=== PATIENT | male | born 1975 | race Caucasian/White ===

== ENCOUNTER 2022-05-23 18:55 | Inpatient (IN) | payer OTHER, SELFPAY ==
[2022-05-23 18:53] VITALS: BMI 25.1
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
[2022-05-23 19:00] VITALS: BP 120/72; PULSE 64; RESP 18; TEMP 36.9; O2SAT 97
[2022-05-23] MEDS: 0.9% Normal Saline 1,000 ML 150 ML IV (19:45)
[2022-05-23] MEDS: Morphine 2 MG/ML Syringe IV (19:51)
[2022-05-24] VITALS (11 sets, daily range): BP systolic 91–122; BP diastolic 41–76; PULSE 51–70; RESP 12–18; TEMP 36.2–36.9; O2SAT 96–100; BMI 25.0
[2022-05-24] MEDS: Morphine 2 MG/ML Syringe IV ×3 (02:32→23:50)
[2022-05-24] MEDS: 0.9% Normal Saline 1,000 ML 150 ML IV ×3 (02:37→18:06)
[2022-05-24 05:07] LABS: Absolute Lymphocyte Count 2.08 X10^3/uL (0.83-4.51); Absolute Neutrophil Count 5.9 X10^3/uL (2.0-7.7); Basophil# 0.03 X10^3/uL; Basophil% 0.3 % (0-1); Eosinophil# 0.18 X10^3/uL; Hematocrit 41.3 % (40-54); Hemoglobin 13.7 g/dL (13.0-16.5); Lymphocyte # 2.08 X10^3/ul (0.83-4.51); Lymphocyte % 23.3 % (19-41); Mean Corp Hgb Conc 33.2 g/dL (32-36); Mean Corpuscular Hgb 28.8 pg (27.0-32.0); Mean Corpuscular Volume 86.9 fL (80-94); Mean Platelet Vol. 9.4 fl (6.2-12.0); Monocyte# 0.68 X10^3/uL; Monocyte% 7.6 % (0-10); NRBC Flagged by Analyzer 0 % (0-5); Neutrophil # 5.94 X10^3/uL (2.7-7.7); Neutrophil % 66.6 % (47-70); Platelet Count 189 K/mm3 (150-450); RBC Distribution Width CV 13.4 % (11.6-14.6); RBC Distribution Width SD 42.7 fl (35.1-43.9); Red Blood Count 4.75 M/mm3 (4.6-6.2); White Blood Count 8.9 K/mm3 (4.4-11.0)
[2022-05-24 05:31] LABS: ALB/GLOB Ratio 0.9 RATIO (0.9-2.4); AST(SGOT) 84 U/L (15-37); Alanine Aminotransfer ALT/SGPT 308 U/L (16-61); Albumin, Serum 3.1 g/dL (3.2-5.0); Alkaline Phosphatase 322 U/L (45-117); Anion Gap 6 (5-15); BUN 11 mg/dL (7-18); BUN/Creat Ratio 12.7 RATIO (10-20); Calcium,Total 8.4 mg/dL (8.5-10.1); Chloride 105 mmol/L (98-107); Creatinine, Serum 0.86 mg/dL (0.70-1.30); EST Glomerular Filtration Rate 102 mL/min (>60); Est Glom Filt Rate - Afr Amer 123 mL/min (>60); Estimated Creatinine Clearance 98.91 ml/min; Globulin 3.5 g/dL (2.2-4.2); Glucose 71 mg/dL (74-106); Potassium 3.7 mmol/L (3.5-5.1); Protein, Total 6.6 g/dL (6.4-8.2); Sodium Level 136 mmol/L (136-145)
--- NOTE | 2022-05-24 06:00 | EKG12_ITS ---
Test Reason : AM EKG Blood Pressure : / mmHG Vent. Rate : 064 BPM Atrial Rate : 064 BPM P-R Int : 126 ms QRS Dur : 086 ms QT Int : 402 ms P-R-T Axes : 034 -10 020 degrees QTc Int : 414 ms Normal sinus rhythm Nonspecific T wave abnormality Abnormal ECG Confirmed by ADRIAN ORR, YUNIEL ([id number]), medical editor VIVIANA TEIXEIRA ([id number]) on 05/24/2022 10:22:38 AM Referred By: MEGHA Confirmed By:YUNIEL CAMPBELL MD
--- NOTE | 2022-05-24 07:37 | PN.HOSP_ITS ---
Subjective Subjective Follow-up on acute gallstone pancreatitis/probable acute cholecystitis: Patient was seen and examined. He is going for ERCP this morning. Still has some mild epigastric discomfort. Denied any nausea vomiting or diarrhea. Objective Data Objective Data Vital Signs: Vital Signs Temp Pulse Resp BP Pulse Ox O2 Del Method 98.4 F 70 14 122/70 H 97 Room Air 05/24/22 02:36 05/24/22 02:36 05/24/22 02:36 05/24/22 02:36 05/24/22 02:36 05/24/22 02:36 Oxygen Delivery Method Room Air Weight: 70.715 kg Body Mass Index (BMI) 25.1 Intake & Output: Intake and Output for Last 24 Hours 05/22/22 05/23/22 05/24/22 23:59 23:59 23:59 Intake Total 1400 / 1400 Balance 1400 / 1400 Lab / Micro Data Result Diagrams: 05/24/22 04:36 05/24/22 04:36 Labs: Laboratory Results - last 24 hr 05/24/22 04:36: WBC 8.9, RBC 4.75, Hgb 13.7, Hct 41.3, MCV 86.9, MCH 28.8, MCHC 33.2, RDW Std Deviation 42.7, RDW Coeff of Arun 13.4, Plt Count 189, MPV 9.4, Immature Gran % (Auto) 0.200, Neut % (Auto) 66.6, Lymph % (Auto) 23.3, [place] % (Auto) 7.6, Eos % (Auto) 2.0, Baso % (Auto) 0.3, Absolute Neuts (auto) 5.9, Absolute Lymphs (auto) 2.08, Nucleated RBC % 0 05/24/22 04:36: Sodium 136, Potassium 3.7, Chloride 105, Carbon Dioxide 25.0, Anion Gap 6, BUN 11, Creatinine 0.86, Estim Creat Clear Calc 98.91, Est GFR (MDRD) Af Amer 123, Est GFR (MDRD) Non-Af 102, BUN/Creatinine Ratio 12.7, Glucose 71 L, Calcium 8.4 L, Total Bilirubin 2.60 H, AST 84 H, ALT 308 H, Alkaline Phosphatase 322 H, Total Protein 6.6, Albumin 3.1 L, Globulin 3.5, Albumin/Globulin Ratio 0.9 Physical Exam Narrative Physical exam: General: Alert, Oriented x3, Cooperative, No apparent distress HEENT: Atraumatic Oral: Moist Mucosa Neck: Supple Lungs: Clear to auscultation Cardiovascular: HS I+II, regular, no murmurs Abdomen: Bowel Sounds Present, Soft, Non Tender Extremities: No edema, right below elbow amputation of the upper extremity Skin: No rashes, No breakdown Neurological: Grossly intact Psych/Mental Status: Appropriate Assessment & Plan Assessment/Plan (1) Gallstone pancreatitis: PLAN: Plan 1. Acute gallstone pancreatitis/probable acute cholecystitis GI consulted;patient is going for ERCP Follow-up on recommendations, trend labs Continue on IV Zosyn 2. DVT prophylaxis?Lovenox subcu Charges/Coding Visit Charges Inpatient E&M: 75818 Subs Hosp L2
[2022-05-24] MEDS: Lactated Ringers 1,000 ML 15 ML IV ×2 (09:00→13:05)
--- NOTE | 2022-05-24 09:14 | RAD_ITS ---
STUDY: ERCP REASON FOR EXAM: Male, 46 years old. ERCP FLUOROSCOPY TIME (if supplied): ( 3 minutes and 24 seconds ) minutes/seconds. 13 images were submitted. TECHNIQUE: An ERCP was performed by the kindergarten aide. Imaging was submitted. COMPARISON: None. FINDINGS: Filling defects are seen in the common bile duct. A biliary stent was placed. RAD/ERCP Biliary Only IMPRESSION: Filling defects in the common bile duct. Status post stent placement. Electronically Signed: Darren Selby MD at 11:07 EDT ,
--- NOTE | 2022-05-24 12:55 | OP.CCLET_ITS ---
05/24/2022 Sissy Ambrose Re : ERCP procedure for Jhonny Ambrose This procedure was performed on Tuesday, May 24, 2022. My impressions and recommendations are as follows: Impressions : - Choledocholithiasis was found. Complete removal was accomplished by biliary sphincterotomy and balloon extraction. - A biliary sphincterotomy was performed. - The biliary tree was swept. - Common bile duct was successfully dilated. - One temporary stent was placed into the common bile duct. - One temporary stent was placed into the ventral pancreatic duct. Recommendations : Clear liquids, continue IV fluids and antibiotic therapy My findings are described in the full procedure note, which is enclosed. If I can be of further assistance, please feel free to contact me at . Sincerely, Bismark Valente, 05/24/2022 12:55:06 PM This report has been signed electronically.
--- NOTE | 2022-05-24 12:55 | OP.ERCP_ITS ---
Patient Name: Jhonny Fontanez Procedure Date: 05/24/2022 11:32 AM Date of : 1975 Age: 46 Procedure: ERCP Indications: Bile duct stone(s), Jaundice, Acute pancreatitis Providers: Bismark Valente DO Medicines: Monitored Anesthesia Care Patient Profile: This is a 46 year old male. Refer to note in patient chart for documentation of history and physical. Patient has symptoms of acute abdominal cramping, acute epigastric abdominal pain and acute jaundice. This patient has no history of previous ERCP. Complications: No immediate complications. Procedure: Pre-Anesthesia Assessment: - Prior to the procedure, a History and Physical was performed, and patient medications and allergies were reviewed. The patient is competent. The risks and benefits of the procedure and the sedation options and risks were discussed with the patient. All questions were answered and informed consent was obtained. Patient identification and proposed procedure were verified by the physician in the pre-procedure area. Mental Status Examination: alert and oriented. Airway Examination: normal oropharyngeal airway and neck mobility. Respiratory Examination: clear to auscultation. CV Examination: normal. Prophylactic Antibiotics: The patient does not require prophylactic antibiotics. Prior Anticoagulants: The patient has taken no previous anticoagulant or antiplatelet agents. ASA Grade Assessment: II - A patient with mild systemic disease. After reviewing the risks and benefits, the patient was deemed in satisfactory condition to undergo the procedure. The anesthesia plan was to use general anesthesia. Immediately prior to administration of medications, the patient was re-assessed for adequacy to receive sedatives. The heart rate, respiratory rate, oxygen saturations, blood pressure, adequacy of pulmonary ventilation, and response to care were monitored throughout the procedure. The physical status of the patient was re-assessed after the procedure. After obtaining informed consent, the scope was passed under direct vision. Throughout the procedure, the patient's blood pressure, pulse, and oxygen saturations were monitored continuously. The Duodenoscope was introduced through the mouth, and advanced to the duodenum and used to inject contrast into the bile duct and ventral pancreatic duct. The ERCP was accomplished without difficulty. Scope In: 11:44:37 AM Scope Out: 12:41:02 PM Total Procedure Duration Time 0 hours 56 minutes 25 seconds Findings: The software publisher film was normal. The esophagus was successfully intubated under direct vision. The scope was advanced to a normal major papilla in the descending duodenum without detailed examination of the pharynx, larynx and associated structures, and upper GI tract. The upper GI tract was grossly normal. The bile duct was deeply cannulated with the short-nosed traction sphincterotome. Contrast was injected. I personally interpreted the bile duct and pancreatic duct images. There was brisk flow of contrast through the ducts. Image quality was excellent. Contrast extended to the biliary pancreatic junction. Contrast extended to the pancreatic duct. Opacification of the main bile duct was successful. The maximum diameter of the ducts was 7 mm. The lower third of the main bile duct contained two stones, the largest of which was 3 mm in diameter. A straight Roadrunner wire was passed into the biliary tree. A 5 mm biliary sphincterotomy was made with a traction (standard) sphincterotome using ERBE electrocautery. The sphincterotomy oozed blood. The biliary tree was swept with a 12 mm balloon starting at the bifurcation. Sludge was swept from the duct. All stones were removed. A 0.035 inch x 260 cm angled Hydra Jagwire passed successfully into the tail of the pancreatic duct from the major papilla. Dilation of the common bile duct with a 6-7-8 mm balloon (to a maximum balloon size of 6 mm) dilator was successful. One 10 Fr by 7 cm temporary stent with two external flaps and two internal flaps was placed 5 cm into the common bile duct. Bile flowed through the stent. The stent was in good position. One 5 Fr by 7 cm temporary stent was placed 5 cm into the ventral pancreatic duct. Clear fluid flowed through the stent. The stent was in good position. Impression: - Choledocholithiasis was found. Complete removal was accomplished by biliary sphincterotomy and balloon extraction. - A biliary sphincterotomy was performed. - The biliary tree was swept. - Common bile duct was successfully dilated. - One temporary stent was placed into the common bile duct. - One temporary stent was placed into the ventral pancreatic duct. Recommendation: Clear liquids, continue IV fluids and antibiotic therapy Procedure Code(s): --- Professional --- 97456, Endoscopic retrograde cholangiopancreatography (ERCP); with placement of endoscopic stent into biliary or pancreatic duct, including pre- and post-dilation and guide wire passage, when performed, including sphincterotomy, when performed, each stent [id number], 59, Endoscopic retrograde cholangiopancreatography (ERCP); with placement of endoscopic stent into biliary or pancreatic duct, including pre- and post-dilation and guide wire passage, when performed, including sphincterotomy, when performed, each stent [id number], Endoscopic retrograde cholangiopancreatography (ERCP); with removal of calculi/debris from biliary/pancreatic duct(s) 21083, 26, Combined endoscopic catheterization of the biliary and pancreatic ductal systems, radiological supervision and interpretation CPT copyright 2017 [employer]. All rights reserved. The codes documented in this report are preliminary and upon crimping machine operator review may be revised to meet current compliance requirements. Bismark Valente DO 05/24/2022 12:55:06 PM This report has been signed electronically. Number of Addenda: 0 Note Initiated On: 05/24/2022 11:32 AM
[2022-05-24] MEDS: Enoxaparin 40 MG/0.4 ML Syringe SC (14:45)
[2022-05-24] MEDS: 0.9% Saline Lock 10 ML Syringe IV ×2 (17:00→23:51)
[2022-05-25] MEDS: 0.9% Normal Saline 1,000 ML 150 ML IV ×2 (01:25→08:34)
[2022-05-25 01:28] VITALS: BP 115/62; PULSE 52; RESP 16; TEMP 36.4; O2SAT 98
[2022-05-25 03:00] VITALS: BP 115/62; PULSE 52; RESP 16; TEMP 36.4; O2SAT 98
[2022-05-25 06:02] LABS: Absolute Lymphocyte Count 1.89 X10^3/uL (0.83-4.51); Absolute Neutrophil Count 5.5 X10^3/uL (2.0-7.7); Basophil# 0.03 X10^3/uL; Basophil% 0.4 % (0-1); Eosinophil# 0.18 X10^3/uL; Eosinophils% 2.2 % (0-5); Hematocrit 33.6 % (40-54); Hemoglobin 11.1 g/dL (13.0-16.5); Lymphocyte # 1.89 X10^3/ul (0.83-4.51); Mean Corpuscular Hgb 28.9 pg (27.0-32.0); Mean Corpuscular Volume 87.5 fL (80-94); Mean Platelet Vol. 9.7 fl (6.2-12.0); Monocyte# 0.63 X10^3/uL; Monocyte% 7.7 % (0-10); NRBC Flagged by Analyzer 0 % (0-5); Neutrophil # 5.47 X10^3/uL (2.7-7.7); Neutrophil % 66.5 % (47-70); Platelet Count 187 K/mm3 (150-450); RBC Distribution Width CV 13.1 % (11.6-14.6); RBC Distribution Width SD 41.2 fl (35.1-43.9); Red Blood Count 3.84 M/mm3 (4.6-6.2); White Blood Count 8.2 K/mm3 (4.4-11.0)
[2022-05-25 06:33] LABS: ALB/GLOB Ratio 0.9 RATIO (0.9-2.4); AST(SGOT) 33 U/L (15-37); Alanine Aminotransfer ALT/SGPT 189 U/L (16-61); Albumin, Serum 2.6 g/dL (3.2-5.0); Alkaline Phosphatase 222 U/L (45-117); Anion Gap 6 (5-15); BUN 10 mg/dL (7-18); BUN/Creat Ratio 13.4 RATIO (10-20); Calcium,Total 8.5 mg/dL (8.5-10.1); Chloride 107 mmol/L (98-107); Creatinine, Serum 0.75 mg/dL (0.70-1.30); EST Glomerular Filtration Rate 120 mL/min (>60); Est Glom Filt Rate - Afr Amer 145 mL/min (>60); Estimated Creatinine Clearance 113.42 ml/min; Glucose 106 mg/dL (74-106); Potassium 3.5 mmol/L (3.5-5.1); Protein, Total 5.6 g/dL (6.4-8.2); Sodium Level 138 mmol/L (136-145)
[2022-05-25 07:41] VITALS: BP 122/65; PULSE 63; RESP 18; TEMP 36.6; O2SAT 99
[2022-05-25] MEDS: Enoxaparin 40 MG/0.4 ML Syringe SC (07:45)
[2022-05-25] MEDS: Morphine 2 MG/ML Syringe IV (08:41)
--- NOTE | 2022-05-25 08:57 | DCINST_ITS ---
Discharge Instructions Diet Discharge Diet: No restrictions Activity Discharge Activity: Return to Normal Activity Weight Bearing Status: Weight bearing as tolerated Follow Up Care Test Results: Test results from this visit will be discussed in further detail at your follow- up appointment, if applicable. Discharge Plan Admission Admit Date/Time: 05/23/22 18:55 Primary Reason for Your Visit: Acute gallstone pancreatitis Attending Provider: Aster Cortez Primary Care Provider: Sissy Ambrose Consulting Providers: Clive Garcia Instructions Forms: Work / School Excuse Additional Instructions / Restrictions: Continue to keep yourself hydrated Follow-up with your primary care doctor within 1 week Follow-up with Dr. Valente within 2 weeks Discharge Orders/Prescriptions Referrals / Follow Up: Sissy Ambrose MD [Primary Care Provider] - In 1 Week Bismark Valente DO [Med Staff - Active Staff] - Within 2 Weeks Disposition Disposition (needs filled in before D/C Order can be placed): Home, Self Care
[2022-05-25 09:00] VITALS: BP 122/65; PULSE 63; RESP 18; TEMP 36.6; O2SAT 99
--- NOTE | 2022-05-25 10:20 | CASEMGMT ---
RN UDAY Face to Face with patient for initial transition planning/care coordination assessment. RN CM introduced self and role at [facility]. Patient lying in bed, alert and oriented, at bedside. Patient willing to participate in assessment and is able to answer all questions appropriately. Care providers, pharmacy, and demographics verified. Patient wishes to discharge home, denies need for home health at this time. Patient states he has no further needs or concerns at this time. CM to follow for discharge planning needs that may arise. PCP: Olya Specialists: none Preferred Pharmacy: [facility] Insurance: [facility] Prescription Benefit: yes Living Will/HPOA: none LNOK: Living Arrangements: patient lives with in a single story home with . Patient is independent at home Transportation: self, DME/HHC: Patient states she has a cane. Patient denies previous HHC or SNF Disposition Plan: Patient to discharge home with family support and follow-up plans in place. Jennifer DE LOS SANTOS, RN, CM
--- NOTE | 2022-05-25 10:27 | PCM.DC.SUM ---
Providers Date of Admission: 05/23/22 Date of Discharge: 05/25/22 Primary Care Physician: Dr. Sissy Ambrose MD Consultations 05/23/22 19:12 Consult: Gastroenterology Routine Consulting Provider: [facility] Reason for Consult: Gallstone pancreatitis EMERGENT Consult: No MD Notified: Yes Date Notified: 05/23/22 Time Notified: 18:58 Method of Notification: Verbal Reason For Visit: PANCREATITIS Diagnosis Discharge Diagnosis (1) Gallstone pancreatitis: Status: Acute Code(s): K85.10 - Biliary acute pancreatitis without necrosis or infection Plan 1. Acute gallstone pancreatitis/probable acute cholecystitis Medications at Discharge Home Medications amoxicillin 500 mg-potassium clavulanate 125 mg tablet (Augmentin) 1 tab PO BID 5 days #10 tabs 05/25/22 pantoprazole 40 mg tablet,delayed release 40 mg PO BID 30 days #60 tabs 05/25/22 Hospital Course Operations ERCP (05/25/22) Procedures None Summary of Care Provided Minutes Spent on Discharge: 35 Hospital Course: 46-year-old male with history of amputation of the right forearm who comes in as a direct admission from [facility] with severe epigastric pain. Patient stated that he has been noticing intermittent abdominal pain with eating. This however got worse 4 days prior to admission. In the outside hospital ultrasound of the gallbladder showed cholelithiasis, sludge with a distended gallbladder with wall thickening, mild biliary duct dilatation with the common duct measuring 6.[address] of the abdomen pelvis showed dilated common bile duct with dilated intrahepatic bile duct, distended gallbladder with mild stranding along the margins of the gallbladder, early cholecystitis was possible, no conclusive features of pancreatitis, no dilated pancreatic duct, no conclusive features of stone or mass in the common bile duct, AST was 288, ALP 397, ALT 536, total bilirubin is 6.5. Patient was admitted to the [facility] floor, kept n.p.o., started on IV fluids and IV antibiotics. GI was consulted. He underwent ERCP on 05/24/22. Findings post ERCP showed choledocholithiasis, complete removal was accomplished by biliary sphincterectomy and balloon extraction. The biliary history was swept. Common bile duct was successfully dilated. 1 temporary stent was placed into the common bile duct. 1 temporary stent was placed into the ventral pancreatic duct. Patient was able to tolerate an upgrade in his diet. He was discharged on 5 more days of Augmentin. He will follow-up with his primary care doctor within 1 week and also follow-up with GI within 2 weeks. Physical Exam Narrative Physical exam: General: Alert, Oriented x3, Cooperative, No apparent distress HEENT: Atraumatic Oral: Moist Mucosa Neck: Supple Lungs: Clear to auscultation Cardiovascular: HS I+II, regular, no murmurs Abdomen: Bowel Sounds Present, Soft, Non Tender Extremities: No edema Skin: No rashes, No breakdown Neurological: Grossly intact Psych/Mental Status: Appropriate Weight / BMI Weight Weight: 70.715 kg Body Mass Index (BMI) 25.0 ABG / Lab / Microbiology Data Result Diagrams: 05/25/22 05:36 05/25/22 05:36 Laboratory: Laboratory Results - last 24 hr 05/25/22 05:36: WBC 8.2, RBC 3.84 L, Hgb 11.1 L, Hct 33.6 L, MCV 87.5, MCH 28.9, MCHC 33.0, RDW Std Deviation 41.2, RDW Coeff of Arun 13.1, Plt Count 187, MPV 9.7, Immature Gran % (Auto) 0.200, Neut % (Auto) 66.5, Lymph % (Auto) 23.0, [place] % (Auto) 7.7, Eos % (Auto) 2.2, Baso % (Auto) 0.4, Absolute Neuts (auto) 5.5, Absolute Lymphs (auto) 1.89, Nucleated RBC % 0 05/25/22 05:36: Sodium 138, Potassium 3.5, Chloride 107, Carbon Dioxide 25.0, Anion Gap 6, BUN 10, Creatinine 0.75, Estim Creat Clear Calc 113.42, Est GFR (MDRD) Af Amer 145, Est GFR (MDRD) Non-Af 120, BUN/Creatinine Ratio 13.4, Glucose 106, Calcium 8.5, Total Bilirubin 1.40 H, AST 33, ALT 189 H, Alkaline Phosphatase 222 H, Total Protein 5.6 L, Albumin 2.6 L, Globulin 3.0, Albumin/Globulin Ratio 0.9 D/C Instructions Discharge Diet: No restrictions Weight Bearing Status: Weight bearing as tolerated Meaningful Use Info Meaningful Use Diagnoses (Choose all that apply): None applicable Discharge Plan Admission Admit Date/Time: 05/23/22 18:55 Primary Reason for Your Visit: Acute gallstone pancreatitis Attending Provider: Aster Cortez Primary Care Provider: Sissy Ambrose Consulting Providers: Clive Garcia Instructions Forms: Work / School Excuse Additional Instructions / Restrictions: Continue to keep yourself hydrated Follow-up with your primary care doctor within 1 week Follow-up with Dr. Valente within 2 weeks Discharge Orders/Prescriptions Prescriptions: New amoxicillin-pot clavulanate [Augmentin] 500-125 mg tablet 1 tab PO BID 5 Days Qty: 10 0RF pantoprazole 40 mg tablet,delayed release (DR/EC) 40 mg PO BID 30 Days Qty: 60 0RF Referrals / Follow Up: Sissy Ambrose MD [Primary Care Provider] - In 1 Week Bismark Valente DO [Med Staff - Active Staff] - Within 2 Weeks Disposition Disposition (needs filled in before D/C Order can be placed): Home, Self Care Charges/Coding Visit Charges Inpatient E&M: 25583 Disch Hosp
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
== END 2022-05-25 11:24 | disposition home or self-care (01) | DRG 439 ==
PROVIDERS: Internal Medicine Gastroenterology; Admitting Provider Family Medicine; PCP Family Medicine; Visit Provider Internal Medicine
PROC: 0FC98ZZ Extirpation of Matter from Common Bile Duct, Via Natural or Artificial Opening Endoscopic (ICD-10-PCS; CPT 43260; principal; 2022-05-24 10:40)
DX: K85.10 Biliary acute pancreatitis without necrosis or infection (principal); K80.42 Calculus of bile duct with acute cholecystitis without obstruction; K83.8 Other specified diseases of biliary tract
CPT/HCPCS: 36415; 74328; 76000; 80053; 85025; 93005; J7030; J7040; J7050; J7120; A4216; C1726; J2405

== ENCOUNTER 2022-06-21 09:57 | Observation (INO) | payer OTHER, SELFPAY ==
[2022-06-21] VITALS (15 sets, daily range): BP systolic 121–157; BP diastolic 82–110; PULSE 45–87; RESP 15–20; TEMP 36.1–36.9; O2SAT 96–100; BMI 25.3
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
[2022-06-21] MEDS: Morphine 4 MG/ML Syringe IV ×2 (11:22→13:34)
[2022-06-21] MEDS: Ondansetron 4 MG/2 ML Vial IV (11:22)
[2022-06-21] MEDS: Ketorolac 15 MG/ML Vial IV (11:22)
--- NOTE | 2022-06-21 11:31 | US_ITS ---
HISTORY: Upper quadrant pain with clinical Carrera sign. TECHNIQUE: Mac scale and color doppler imaging was performed of the right upper quadrant. 85 images. COMPARISON: CT 08/31/2015. FINDINGS: LIVER: 15.2 cm in length. Homogeneous echotexture without focal lesion demonstrated. No intrahepatic ductal dilatation. MAIN PORTAL VEIN: Patent with flow in the appropriate direction. COMMON BILE DUCT: 5 mm in diameter with biliary stent in place. GALLBLADDER: Large amount of tumefactive sludge with small gallstones in the distended gallbladder. 4 mm wall thickness, mildly thickened. Mild pericholecystic fluid. Sonographic Carrera sign positive. PANCREAS: Partially obscured due to overlying bowel gas. RIGHT KIDNEY: 10.8 cm in length with a cortical thickness of 1.4 cm. No hydronephrosis or gross renal mass demonstrated. US/Gallbladder IMPRESSION: Cholelithiasis and biliary sludge in the distended gallbladder with mild gallbladder wall thickening and pericholecystic fluid, concerning for acute cholecystitis. No evidence for biliary ductal dilatation with biliary stent in place. Electronically Signed: Casandra Maya MD at 13:44 EST ,
[2022-06-21 11:33] LABS: Absolute Neutrophil Count 8.6 X10^3/uL (2.0-7.7); Basophil# 0.04 X10^3/uL; Basophil% 0.4 % (0-1); Eosinophil# 0.22 X10^3/uL; Hemoglobin 14.7 g/dL (13.0-16.5); Lymphocyte % 11.8 % (19-41); Mean Corp Hgb Conc 33.4 g/dL (32-36); Mean Corpuscular Hgb 28.5 pg (27.0-32.0); Mean Corpuscular Volume 85.4 fL (80-94); Mean Platelet Vol. 10.1 fl (6.2-12.0); Monocyte% 7.3 % (0-10); NRBC Flagged by Analyzer 0 % (0-5); Neutrophil # 8.61 X10^3/uL (2.7-7.7); Neutrophil % 78.1 % (47-70); Platelet Count 227 K/mm3 (150-450); RBC Distribution Width CV 12.6 % (11.6-14.6); RBC Distribution Width SD 39.3 fl (35.1-43.9); Red Blood Count 5.15 M/mm3 (4.6-6.2)
[2022-06-21 12:31] LABS: AST(SGOT) 16 U/L (15-37); Alanine Aminotransfer ALT/SGPT 24 U/L (16-61); Albumin, Serum 3.7 g/dL (3.2-5.0); Alkaline Phosphatase 87 U/L (45-117); Bilirubin, Direct 0.25 mg/dL (0.00-0.30); Globulin 3.7 g/dL (2.2-4.2); Lipase 190 U/L (73-393); Protein, Total 7.4 g/dL (6.4-8.2)
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
--- NOTE | 2022-06-21 14:20 | PCM.OPRPT ---
Problems Associated Problem List Diagnoses (1) Acute cholecystitis due to biliary calculus: Report of Operation Date of Procedure: 06/21/22 Pre-Operative Diagnosis: Acute cholecystitis with cholelithiasis Post-Operative Diagnosis: Same Surgery/Procedure Performed:: Laparoscopic cholecystectomy Surgeon: Ty Haynes Type of Anesthesia: General Anesthesiologist: Laith Melchor Specimen's removed: Gallbladder Drains: None Estimated Blood Loss (mL): 50 cc Description of Procedure: Patient was brought into the operating room. Placed in the supine position. Under excellent general anesthetic. The abdomen was sterilely prepped and draped in usual fashion. Local was injected infraumbilically. Dissection was carried down to the fascia. The fascia was grasped with a [place]. Varies needle was placed inside the abdomen. The abdomen was insufflated 15 torr. A 10/12 trocar was placed. Patient was placed in the head up and rotated to the left position. Subxiphoid #5 trochars placed, inferior to this another #5 trocar was placed, laterally a #5 trocar was placed. All these trochars were placed under direct visualization without injury to underlying structures. I aspirated out fluid from the gallbladder. I grasped it retracted in cephalad direction. Significant swelling all around the gallbladder with adhesions I took this down with electrocautery I dissected all of this edematous plane till I got down to the cystic duct I placed hemoclips proximally and distally on the duct and ligated the duct. I placed hemoclips proximally and distally on the artery and ligated the artery. I deliver the gallbladder from the gallbladder bed with use of electrocautery I did have some spillage of bile and stones. Small little vessels I did place hemoclips on as well. I placed the specimen in a specimen bag delivered through the umbilical port without difficulty. I irrigated the right upper quadrant used electrocautery on the liver bed I had good hemostasis. I used a 10 mm suction aspirator to retrieve all the stones that I had lost. I placed Ebenezer on the liver bed. I removed the trochars under direct visualization good my stasis was noted. Close the fascia the umbilical port with a [id number] stitch of 0 Vicryl. Skin incisions were closed with subcuticular stitches of 4-0 Monocryl. Sterile dressings were applied. Patient tolerated the procedure well. Admit VTE Documentation VTE Present on Admission: No VTE Mechan Device Prophylaxis: SCD's VTE Pharm Prophylaxis ordered?: No Reason prophylaxis not ordered:: Treatment Not Indicated
--- NOTE | 2022-06-21 14:30 | GALL_PTH ---
PATIENT: DINESH REYES LOC: MS3 U#:[id number] AGE/SX: 46/M [place] [facility] [place]: Dr. Ty Haynes MD : 1975 BED: 1 DIS: 06/22/2022 SPEC #: [id number] RECD: 06/24/22 06:33 STATUS: YOSSI REKimberly #: [id number] LOU: 06/21/22 14:[address]: Ty Haynes DEPT: SURGICAL PATHOLOGY RECD BY: Lynne Ornelas ENTERED: 06/24/22 08:09 SP TYPE: BLAINE VERGARA DR: Dr. Seema Dobson MD Tissues: Gallbladder, NOS Procedures: Surgery Specimen Level III HEADER OPERATION: Laparoscopic cholecystectomy PRE-OP DIAGNOSIS: Acute cholecystitis due to biliary calculus TISSUE SUBMITTED: Gallbladder MICROSCOPIC DIAGNOSIS Gallbladder, cholecystectomy: Acute and chronic ulcerated and hemorrhagic cholecystitis, cholelithiasis and focal cholesterolosis. Reactive epithelial changes. AMRIK:gordo 06/25/2022 MICROSCOPIC DESCRIPTION Slides are reviewed. GROSS DESCRIPTION Received is one container labeled with the patient's name and designated gallbladder. The specimen consists of a gallbladder measuring 10 cm in length and up to 4 cm in diameter. The external surface is pink-moya, smooth and glistening for the most part. Focally it is granular, hemorrhagic and contains cautery artifact. The gallbladder contains a small amount of hemorrhagic bile and multiple yellowish-brown mulberry stones measuring in aggregate 2.5 x 2.5 x 0.5 cm and 0.4 to 0.5 cm in greatest dimension. A few stones are noted in the cystic duct. The mucosa is bile-stained and without any mass lesions. The gallbladder wall measures up to 0.6 cm in thickness. Senior Architect sections from the gallbladder and the cystic duct are submitted in two cassettes. / AMRIK:gordo 06/24/2022 TC:2 CPT: 87885
[2022-06-21] MEDS: 0.9% Normal Saline 1,000 ML 15 ML IV (15:00)
[2022-06-21] MEDS: Bupivacaine 0.25% 30 ML Vial (15:23)
[2022-06-21] MEDS: 0.9% Normal Saline 1,000 ML 75 ML IV (18:44)
[2022-06-21] MEDS: oxyCODONE 5 MG Tablet PO (21:08)
[2022-06-22 03:01] VITALS: BP 134/98; PULSE 84; RESP 18; TEMP 37.1; O2SAT 98
[2022-06-22] MEDS: oxyCODONE 5 MG Tablet PO ×2 (03:02→07:37)
--- NOTE | 2022-06-22 03:49 | NURSING ---
st cathed for 1300cc dark yellow urine at this time
[2022-06-22 07:16] LABS: Absolute Lymphocyte Count 1.23 X10^3/uL (0.83-4.51); Absolute Neutrophil Count 10.3 X10^3/uL (2.0-7.7); Basophil# 0.01 X10^3/uL; Basophil% 0.1 % (0-1); Hematocrit 41.1 % (40-54); Hemoglobin 13.9 g/dL (13.0-16.5); Lymphocyte # 1.23 X10^3/ul (0.83-4.51); Lymphocyte % 9.5 % (19-41); Mean Corp Hgb Conc 33.8 g/dL (32-36); Mean Corpuscular Hgb 28.5 pg (27.0-32.0); Mean Corpuscular Volume 84.2 fL (80-94); Mean Platelet Vol. 9.7 fl (6.2-12.0); Monocyte# 1.31 X10^3/uL; Monocyte% 10.1 % (0-10); NRBC Flagged by Analyzer 0 % (0-5); Neutrophil # 10.33 X10^3/uL (2.7-7.7); Platelet Count 229 K/mm3 (150-450); RBC Distribution Width CV 12.6 % (11.6-14.6); RBC Distribution Width SD 38.8 fl (35.1-43.9); Red Blood Count 4.88 M/mm3 (4.6-6.2); White Blood Count 12.9 K/mm3 (4.4-11.0)
[2022-06-22] MEDS: Pantoprazole Sodium 40 MG Tablet PO (07:37)
[2022-06-22 07:40] VITALS: BP 133/89; PULSE 90; RESP 18; TEMP 37; O2SAT 97
[2022-06-22 07:43] VITALS: BP 133/89; PULSE 90; RESP 18; TEMP 37; O2SAT 97
[2022-06-22 08:17] LABS: ALB/GLOB Ratio 0.9 RATIO (0.9-2.4); AST(SGOT) 40 U/L (15-37); Alanine Aminotransfer ALT/SGPT 57 U/L (16-61); Albumin, Serum 3.2 g/dL (3.2-5.0); Alkaline Phosphatase 80 U/L (45-117); Anion Gap 6 (5-15); BUN 15 mg/dL (7-18); BUN/Creat Ratio 18.7 RATIO (10-20); Calcium,Total 8.6 mg/dL (8.5-10.1); Chloride 100 mmol/L (98-107); EST Glomerular Filtration Rate 111 mL/min (>60); Est Glom Filt Rate - Afr Amer 134 mL/min (>60); Estimated Creatinine Clearance 106.33 ml/min; Globulin 3.6 g/dL (2.2-4.2); Glucose 127 mg/dL (74-106); Potassium 3.9 mmol/L (3.5-5.1); Protein, Total 6.8 g/dL (6.4-8.2); Sodium Level 134 mmol/L (136-145)
--- NOTE | 2022-06-22 09:01 | DCINST_ITS ---
Discharge Instructions Procedure Gallbladder Diet Discharge Diet: Light diet - advance as tolerated Activity Discharge Activity: May Not Drive (for 2-3 days or while taking narcotic pain medications.) and - (Do not drive, work heavy equipment or sign legal documents for 24 hours.) May shower in (days): 1 (with the bandage in place.) Additional Activity Instructions:: Pain medication may cause nausea. You should typically eat light foods as you take your pain medications. Pain medication may also cause constipation. If this is a problem for you, please discuss with your doctor. Dressing / Incision Call your doctor if your incision/area has: Continuous Slow Oozing, Sudden Increased Bleeding, Increased Pain/ Swelling, Increased Redness and Foul Sm elling Discharge Call your doctor if you observe: Fever of 101 or Higher Suture Line Care: Avoid Pulling/Pushing and Avoid Pinching/Bending Additional Dressing/Incision Instructions:: Leave operative bandaids on for 2 days. When you remove dressing, leave Steri-Strips on until your follow-up appointment, or until the Steri-Strips fall off on their own. Follow Up Care Please Follow Up With: Crystal López PA-C When: Call office to schedule an appointment to be seen in 7 days after surgery. Test Results: Test results from this visit will be discussed in further detail at your follow- up appointment, if applicable. Discharge Plan Admission Attending Provider: Ty Haynes Primary Care Provider: Seema Dobson Discharge Orders/Prescriptions Prescriptions: New levofloxacin 500 mg tablet 500 mg PO DAILY Qty: 7 0RF oxycodone-acetaminophen [Endocet] 5-325 mg tablet 1 tab PO Q4H PRN (Reason: pain) 5 Days Qty: 20 0RF No Action pantoprazole 40 mg tablet,delayed release (DR/EC) 40 mg PO BID Referrals / Follow Up: Seema Dobson MD [Primary Care Provider] - Crystal López PA-C [Med Staff - [facility] Prof] - Disposition Disposition (needs filled in before D/C Order can be placed): Home, Self Care
== END 2022-06-22 11:47 | disposition home or self-care (01) ==
LOC: ED 14:13 → SDC 14:26 → MS3 14:54 → SDC 06-22 10:56 → MS3 06-22 10:56
PROVIDERS: Admitting Provider Surgery; Emergency Provider Emergency Medicine; PCP Internal Medicine; Visit Provider Surgery
PROC: (CPT 47562; principal; 2022-06-21 14:10)
DX: K80.12 Calculus of gallbladder with acute and chronic cholecystitis without obstruction (principal)
CPT/HCPCS: 47562; 00790; 36415; 76705; 80053; 80076; 83690; 85025; 87070; 87075; 87077; 87186; 87205; 88304; 96361; 96365; 96366; 96375; 96376; 99218; 99251; 99252; 99284; J7030; A4216; G0378; G0463; J2405

== ENCOUNTER 2022-08-27 13:09 | Day surgery (SDC) | payer OTHER, SELFPAY ==
[2022-08-27] VITALS (7 sets, daily range): BP systolic 121–136; BP diastolic 78–101; PULSE 62–71; RESP 16–18; TEMP 36.4–36.6; O2SAT 95–99; BMI 28.1
--- NOTE | 2022-08-27 13:29 | EKG12_ITS ---
Test Reason : PREOP Blood Pressure : / mmHG Vent. Rate : 060 BPM Atrial Rate : 060 BPM P-R Int : 142 ms QRS Dur : 088 ms QT Int : 410 ms P-R-T Axes : 029 -17 024 degrees QTc Int : 410 ms Poor data quality, interpretation may be adversely affected Normal sinus rhythm Normal ECG When compared with ECG of 21-JUN-2022 14:58, Questionable change in QRS axis T wave inversion no longer evident in Anterior leads Confirmed by CASEY ORR, BORIS ([id number]), purchase request editor VIVIANA TEIXEIRA ([id number]) on 09/02/2022 12:58:16 PM Referred By: Bismark Valente Confirmed By:NELLIE PEÑA MD
[2022-08-27] MEDS: Lactated Ringers 1,000 ML 15 ML IV (14:05)
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
--- NOTE | 2022-08-27 17:30 | RAD_ITS ---
Fluoroscopic guided ERCP INDICATION: Pain TECHNIQUE: Fluoroscopic guided ERCP was performed in usual fashion by gunner's mate m. FINDINGS: 9 fluoroscopic guided images were obtained in the anterior projection during the exam to document findings during the study. For more complete information recommend correlation with gunner's mate m procedure notes RAD/ERCP Biliary Only IMPRESSION: Fluoroscopic guided ERCP Electronically Signed: Hernan Navarro MD at 22:12 EST ,
--- NOTE | 2022-08-27 18:52 | EKG12_ITS ---
Test Reason : POST OP Blood Pressure : / mmHG Vent. Rate : 065 BPM Atrial Rate : 065 BPM P-R Int : 138 ms QRS Dur : 086 ms QT Int : 412 ms P-R-T Axes : 026 008 027 degrees QTc Int : 428 ms Normal sinus rhythm Normal ECG When compared with ECG of 27-AUG-2022 13:29, MANUAL COMPARISON REQUIRED, DATA IS UNCONFIRMED Confirmed by CASEY ORR, BORIS ([id number]), metropolitan editor VIVIANA TEIXEIRA ([id number]) on 09/02/2022 12:55:51 PM Referred By: Bismark Valente Confirmed By:NELLIE PEÑA MD
--- NOTE | 2022-08-28 17:12 | OP.ERCP_ITS ---
Patient Name: Jhonny Fontanez Procedure Date: 08/27/2022 5:13 PM Date of : 1975 Age: 47 Procedure: ERCP Indications: Biliary stent removal Providers: Bismark Valente DO Referring MD: Bismark Valente DO Medicines: Monitored Anesthesia Care Patient Profile: This is a 47 year old male. Refer to note in patient chart for documentation of history and physical. Patient has symptoms of chronic jaundice and chronic nausea. Complications: No immediate complications. Procedure: Pre-Anesthesia Assessment: - Prior to the procedure, a History and Physical was performed, and patient medications and allergies were reviewed. The patient is competent. The risks and benefits of the procedure and the sedation options and risks were discussed with the patient. All questions were answered and informed consent was obtained. Patient identification and proposed procedure were verified by the physician in the pre-procedure area. Mental Status Examination: alert and oriented. Airway Examination: normal oropharyngeal airway and neck mobility. Respiratory Examination: clear to auscultation. CV Examination: normal. Prophylactic Antibiotics: The patient does not require prophylactic antibiotics. Prior Anticoagulants: The patient has taken aspirin. ASA Grade Assessment: II - A patient with mild systemic disease. After reviewing the risks and benefits, the patient was deemed in satisfactory condition to undergo the procedure. The anesthesia plan was to use monitored anesthesia care (MAC). Immediately prior to administration of medications, the patient was re-assessed for adequacy to receive sedatives. The heart rate, respiratory rate, oxygen saturations, blood pressure, adequacy of pulmonary ventilation, and response to care were monitored throughout the procedure. The physical status of the patient was re-assessed after the procedure. After obtaining informed consent, the scope was passed under direct vision. Throughout the procedure, the patient's blood pressure, pulse, and oxygen saturations were monitored continuously. The Duodenoscope was introduced through the mouth, and advanced to the duodenum and used to inject contrast into the bile duct. The ERCP was accomplished without difficulty. The patient tolerated the procedure well. Scope In: 5:34:38 PM Scope Out: 5:51:11 PM Total Procedure Duration Time 0 hours 16 minutes 33 seconds Findings: The manager float film was normal. The esophagus was successfully intubated under direct vision. The scope was advanced to a normal major papilla in the descending duodenum without detailed examination of the pharynx, larynx and associated structures, and upper GI tract. The upper GI tract was grossly normal. The bile duct was deeply cannulated. Contrast was injected. I personally interpreted the bile duct images. There was brisk flow of contrast through the ducts. Image quality was excellent. Contrast extended to the biliary pancreatic junction. Opacification of the lower third of the main bile duct was successful. The maximum diameter of the ducts was 8 mm. The lower third of the main bile duct contained one stone, which was 6 mm in diameter. The main bile duct was diffusely dilated, with a stone causing an obstruction. The largest diameter was 8 mm. A straight Roadrunner wire was passed into the biliary tree. A 5 mm biliary sphincterotomy was made with a traction (standard) sphincterotome using ERBE electrocautery. There was no post-sphincterotomy bleeding. The biliary tree was swept with a 15 mm balloon starting at the bifurcation. Sludge was swept from the duct. All stones were removed. One stent was removed from the biliary tree using a snare. The stent was found to be partially occluded via the water column test. Impression: - The entire main bile duct was dilated, with a stone causing an obstruction. - Choledocholithiasis was found. Complete removal was accomplished by biliary sphincterotomy and balloon extraction. - A biliary sphincterotomy was performed. - The biliary tree was swept. - One stent was removed from the biliary tree. Procedure Code(s): --- Professional --- 04618, Endoscopic retrograde cholangiopancreatography (ERCP); with removal of foreign body(s) or stent(s) from biliary/pancreatic duct(s) 22374, Endoscopic retrograde cholangiopancreatography (ERCP); with removal of calculi/debris from biliary/pancreatic duct(s) 87514, Endoscopic retrograde cholangiopancreatography (ERCP); with sphincterotomy/papillotomy 54164, 26, Endoscopic catheterization of the biliary ductal system, radiological supervision and interpretation CPT copyright 2017 [employer]. All rights reserved. The codes documented in this report are preliminary and upon promos executive producer review may be revised to meet current compliance requirements. Bismark Valente DO 08/28/2022 5:11:59 PM This report has been signed electronically. Number of Addenda: 0 Note Initiated On: 08/27/2022 5:13 PM
--- NOTE | 2022-08-28 17:12 | OP.CCLET_ITS ---
08/28/2022 Sissy Ambrose Re : ERCP procedure for Jhonny Fontanez Dear Ambrose This procedure was performed on Saturday, August 27, 2022. My impressions and recommendations are as follows: Impressions : - The entire main bile duct was dilated, with a stone causing an obstruction. - Choledocholithiasis was found. Complete removal was accomplished by biliary sphincterotomy and balloon extraction. - A biliary sphincterotomy was performed. - The biliary tree was swept. - One stent was removed from the biliary tree. Recommendations : My findings are described in the full procedure note, which is enclosed. If I can be of further assistance, please feel free to contact me at . Sincerely, Bismark Valente, 08/28/2022 5:11:59 PM This report has been signed electronically.
== END 2022-08-27 19:41 | disposition home or self-care (01) ==
LOC: EN 13:13 → AC 13:19
PROVIDERS: PCP Internal Medicine; Referring Provider Internal Medicine Gastroenterology; Visit Provider Internal Medicine Gastroenterology
PROC: (CPT 43260; principal; 2022-08-27 14:25)
DX: K85.10 Biliary acute pancreatitis without necrosis or infection (principal); K83.8 Other specified diseases of biliary tract; K80.51 Calculus of bile duct without cholangitis or cholecystitis with obstruction; Z87.442 Personal history of urinary calculi
CPT/HCPCS: 43262; 43275; 43264; 74328; 76000; 93005; J7120; J2405